=== PATIENT | male | born 1975 | race Caucasian/White ===

== ENCOUNTER 2023-07-14 10:06 | Outpatient (AMB) | payer OTHER, SELFPAY ==
[2023-07-14 10:08] VITALS: BP 132/76; PULSE 112; O2SAT 98; BMI 25.3
--- NOTE | 2023-07-14 10:08 | MHC.OFFWIV ---
Intake Vital Signs 07/14/23 10:08 Height 5 ft 10 in Weight 176 lb 2 oz BMI 25.3 BP 132/76 Blood Pressure Location Rt brachial Position Sitting Pulse 112 H Pulse Source Pulse Oximeter Pulse Oximetry (%) 98 Oxygen Delivery Method Room Air Intake Visit Reasons: cough Intake Note: Patient is here today for on going cough for a week and half with stuffiness. Complaint of burning when urination, and discharge on going for two days. Home covid test is negative. 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 Produtive, hard to clear phlegm. Using cough drops. Denies known sick contacts, UTD on flu and COVID (minus recent booster). Denies blood in sputum, fever, chills. Home test for COVID negative yesterday. Urinary complaints: burning w urination, penile d/c- purulent d/c. Sx started a few days ago. Used Azo without relief. Potential for STD. Ingrown hair like area on pubic area, started around the same time. Feels its different than other ingrown hair in the past. 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 Does not look like a chancre or herpatic lesion, rather a hollowed out hair follicle. There is no assoc adenopathy. Purulent d/c from penis noted. Otherwise exam benign. 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 ceftriaxone given im r gluteus. advised to get help and call 911 should he have any indication of an allergic reaction especially with breathing difficulties. Assessment & Plan Assessment & Plan (1) Gonorrhea in male: Code(s): A54.9 - Gonococcal infection, unspecified Plan: Given the hx and exam today, will tx w/ IM Ceftriaxone now and send in RX for Azithro 2gm x 1. Urine testing pending. He should notify all sexual partners once testing confirms dx. Safe sex practice encouraged. Advised that i did not think the lesion noted on exam was an STD rather r/t an ingrown hair, he should monitor for resolution. if it does not get better or if it gets worse he should RTO for further evaluation. (2) Cough: Code(s): R05.9 - Cough, unspecified Qualifiers: Cough type: acute Qualified Code(s): R05.1 - Acute cough Plan: If viral swab +, supportive care using OTC medications. If negative, no further treatment indicated. Smoking cessation encouraged. (3) Genital lesion, male: Code(s): N50.89 - Other specified disorders of the male genital organs Orders: Orders AMB Ceftriaxone Injection Today A54.9 - Gonococcal infection, unspecified SARS-CoV2/FLU/RSV Today R05.9 - Cough, unspecified CT NG by PCR Today A54.9 - Gonococcal infection, unspecified Medications: New azithromycin 2,000 mg (4 x 500 mg) PO DAILY 1 day 4 tabs 0RF Coding Level of Care Code Est Pt Level 4 (72951) Diagnoses Gonorrhea in male A54.9 Acute cough R05.1 Cough type: acute Genital lesion, male N50.89
== END 2023-07-14 11:26 | disposition home or self-care (01) ==
PROVIDERS: Visit Provider Nurse Practitioner Family
DX: A54.9 Gonococcal infection, unspecified (principal); R05.1 Acute cough; N50.89 Other specified disorders of the male genital organs
CPT/HCPCS: 96372; 99214; J0696

== ENCOUNTER 2023-07-14 14:58 | Outpatient (REF) | payer OTHER, SELFPAY ==
[2023-07-14 15:56] LABS: Influenza A PCR NEGATIVE (Negative); Influenza B PCR NEGATIVE (Negative); Resp Syncy Virus RNA Qual PCR NEGATIVE (Negative); SARS COV2 PCR INHOUSE NEGATIVE (Negative)
[2023-07-14 16:44] LABS: CT PCR NOT DETECTED (Not Detect.); NG PCR DETECTED (Not Detect.)
== END 2023-07-14 14:59 | disposition home or self-care (01) ==
LOC: HO.LNP 14:58
PROVIDERS: Visit Provider Nurse Practitioner Family
DX: R05.9 Cough, unspecified (principal); A54.9 Gonococcal infection, unspecified; Z11.52 Encounter for screening for COVID-19
CPT/HCPCS: 0241U; 0353U